=== PATIENT | female | born 1970 | race Caucasian/White ===

== ENCOUNTER 2019-01-16 07:01 | Day surgery (SDC) | payer OTHER ==
[~2019-01-16] VITALS: Ht 162.6 cm; Wt 60.9 kg
[2019-01-16] VITALS (15 sets, daily range): BP systolic 97–116; BP diastolic 67–79; PULSE 90–107; RESP 10–29; Ht 162.6 cm; Wt 60.9 kg
[~2019-01-16 07:01] MED LIST: DOCU-159 PO; HYDR-3498 PO; OMEP20CA16 PO; POLY17PO28 PO; PRENAT PO
[2019-01-16] MEDS ORDERED: ACETAMINOPHEN 500 MG TAB PO ONE (08:00)
[2019-01-16] MEDS ORDERED: MIDAZOLAM 1 MG/ML 2 ML INJ ONE (08:37)
[2019-01-16] MEDS ORDERED: FENTAnyl 50 MCG/ML VIAL ONE (08:37)
[2019-01-16] MEDS ORDERED: CEFAZOLIN 1 GM INJ ONE (08:37)
[2019-01-16] MEDS ORDERED: LIDOCAINE 2% (SDV) 5 ML INJ ONE (08:37)
[2019-01-16] MEDS ORDERED: PROPOFOL 40 ML ONE (08:37)
--- NOTE | 2019-01-16 08:59 | PREAC ---
Date/Time of Note Date/Time of Note DATE: 01/16/19 TIME: 08:57 Anesthesia Eval and Record Evaluation Time Pre-Procedure Interview DATE: 01/16/19 TIME: 08:57 Age 48 Sex female NPO: 8 hrs Preoperative diagnosis R lower quadrant abdominal wall mass Planned procedure excision of R lower quadrant abdominal wall mass Past Medical History Past Medical History: Includes (hx colon ca w/ colon resection mets to liver w/ L lateral hepatectomy; pt states she is cancer free from her organs) Surgery & Anesthesia Issues No known issue Meds Anticoagulation: No Beta Cheli within 24 hr: No Reason Beta Cheli not given: Pt. not on B-Cheli Discontinued Reported Medications Hydrocodone Bit-Acetaminophen* (Hydrocodone-APAP*) 5-325 Tablet, 1 TAB PO QID PRN for PAIN, TAB 06/30/16 Omeprazole* (Omeprazole*) 20 Mg Capsule.dr, 20 MG PO DAILY, #30 CAP 06/30/16 Polyethylene Glycol* (Polyethylene Glycol*) 17 Gm Powd.pack, 17 GM PO DAILY, #30 PACKET 06/30/16 Docusate Sodium* (Docusate Sodium*) 100 Mg Capsule, 100 MG PO BID, #60 CAP 06/30/16 Multivit/Min/Fol Ac/Iron/Pren* ( S*) 1 Tab Tab, 1 TAB PO DAILY, TAB 02/17/16 Meds reviewed: Yes Allergies Coded Allergies: No Known Drug Allergy (Unverified Allergy, Unknown, 01/16/19) Allergies Reviewed: Yes Labs/Studies Labs Reviewed: Reviewed by anesthesiologist test: Negative Pre-procedure Exam Last vitals Vital Signs Date Temp Pulse Resp B/P (MAP) Pulse Ox O2 O2 Flow FiO2 Time Delivery Rate 01/16/19 98.0 08:35 01/16/19 107 18 116/75 97 07:10 (89) Airway: Adequate mouth opening, Adequate thyromental dist Mallampati: Mallampati II Teeth: Normal Lung: Normal Heart: Normal ASA Physical Status ASA physical status: 2 Emergency: None Planned Anesthetic General/MAC: LMA Pre-operative Attestations Prior to commencing anesthesia and surgery, the patient was re-evaluated, there was verification of: *The patient's identity *The results of appropriate recent lab work and preoperative vital signs *The above evaluation not changing prior to induction *Anesthetic plan, risk benefits, alternative and complications discussed with patient/family; questions answered; patient/family understands, accepts and wishes to proceed. KENNY REYNOLDS Jan 16, 2019 08:59
[2019-01-16] MEDS ORDERED: OXYCODONE/ACETAMINOPHEN (5/325) TAB PO PRN ×2 (09:00)
[2019-01-16] MEDS ORDERED: HYDROmorphONE 1 MG/5 ML IV SYRINGE IV PRN (09:00)
[2019-01-16] MEDS ORDERED: ONDANSETRON 4 MG INJ IV PRN (09:00)
[2019-01-16] MEDS ORDERED: LABETALOL HCL 20MG INJ IV PRN (09:00)
[2019-01-16] MEDS ORDERED: morphine (1 MG/ML) 10ML SYRINGE IV PRN ×2 (09:00)
[2019-01-16] MEDS ORDERED: MEPERIDINE 25 MG INJ IV PRN (09:00)
[2019-01-16] MEDS ORDERED: ALBUTEROL 0.083% (NEB) 2.5 MG/3 ML AMP HHN PRN (09:00)
[2019-01-16] MEDS ORDERED: DIPHENHYDRAMINE 50 MG INJ IV PRN (09:00)
[2019-01-16] MEDS ORDERED: FENTAnyl 50 MCG/ML VIAL IV PRN ×2 (09:00)
[2019-01-16] MEDS ORDERED: ONDANSETRON 4 MG INJ ONE (09:15)
[2019-01-16] MEDS ORDERED: FAMOTIDINE 20 MG INJ ONE (09:15)
[2019-01-16] MEDS ORDERED: PHENYLephrine 10 MG INJ ONE (09:16)
[2019-01-16] MEDS ORDERED: BUPIVACAINE 0.5%/EPI (SDV) 30 ML INJ ONE (09:34)
--- NOTE | 2019-01-16 09:54 | PAC ---
Date/Time of Note Date/Time of Note DATE: 01/16/19 TIME: 09:52 Post-Anesthesia Notes Post-Anesthesia Note Last documented vital signs Vital Signs Date Temp Pulse Resp B/P (MAP) Pulse Ox O2 O2 Flow FiO2 Time Delivery Rate 01/16/19 98.0 98 99 18 114/72 100 8L face 08:35 094 mask 8 01/16/19 107 18 116/75 97 07:10 (89) Activity: WNL Respiratory function: WNL Cardiovascular function: WNL Mental status: Baseline Pain reasonably controlled: Yes Hydration appropriate: Yes Nausea/Vomiting absent: Yes KENNY REYNOLDS Jan 16, 2019 09:54
[2019-01-16] MEDS: HYDROmorphONE 1 MG/5 ML IV SYRINGE IV PRN ×2 (10:30→10:35)
--- NOTE | 2019-01-16 10:32 | OPR ---
DATE OF OPERATION: 01/16/2019 PREOPERATIVE DIAGNOSIS: Stage IV colon cancer and a symptomatic right abdominal wall tumor. POSTOPERATIVE DIAGNOSIS: Stage IV colon cancer and a symptomatic right abdominal wall tumor. OPERATION PERFORMED: Resection of right abdominal wall tumor with portion of right abdominal wall mu sculature. ANESTHESIA: General. ANESTHESIOLOGIST: Megan Evans, nurse medical services assistant. SURGEON: Sandeep Ruvalcaba MD COLOR ARTIST: None. INDICATIONS FOR PROCEDURE: The patient is a very unfortunate 48-year-old female who is being treated for stage IV colon cancer. She had previous liver resection and liver ablation by another surgeon. She presented with a mass on the right abdominal wall. Her medical oncologist requested resection o f the mass for 2 reasons; first because it was symptomatic and second because they wanted to send the tissue for genetic analysis to help direct treatment. The patient consented and was scheduled for [facility]. DESCRIPTION OF PROCEDURE: The patient was brought to the operating theater, placed under general end otracheal tube anesthesia. The palpable mass was identified on the right side of the abdomen approxi mately 6 to 7 cm below the right costal margin. A transverse incision was made over the mass. Subcu taneous tissue was dissected down to the fibers of the external oblique. The mass was below the fibe rs of the external oblique. Therefore, the muscle fibers were split in the direction of the fibers a nd retracted medially and laterally. This allowed visualization of the underlying tumor process whic h was involving the fibers of the internal oblique and portions of the transversalis musculature. It was deemed by Dr. Ruvalcaba that complete extirpation would not be in the patient's best interest as it would leave the patient with very large abdominal wall defect, therefore the tumor was circumferentia lly transected en bloc with a portion of the musculature, taking great care not to violate the perine um; only a small amount of residual tumor cells were not included in the resection. These tumor cell s were intimately associated with the peritoneum. The tumor was then elevated, transected, and sent for pathologic analysis. Wound was irrigated. The fascia of the area was then infiltrated with 0.5% Marcaine local anesthetic with epinephrine, and the abdominal wall fascia overlying the external obl ique was then reapproximated with multiple 2-0 Vicryl sutures. Wound was irrigated with Betadine, an d skin was then reapproximated with skin melisa. Patient tolerated procedure well. Estimated blood loss was 20 mL. There were no complications and the patient was transported in stable condition to the recovery room. Dictated By: SANDEEP SHIELDS/DEE Conf#: [id number] DID#: [id number]
--- NOTE | 2019-01-16 10:34 | SIPON ---
Date/Time of Note Date/Time of Note DATE: 01/16/19 TIME: 10:32 Operative Report Preoperative Diagnosis Right abdominal wall mass, stage IV colon cancer Postoperative Diagnosis Same Operation/Procedure Performed Resection of right abdominal wall mass with en bloc resection of portion of the abdominal wall musculature Surgeon see signature line assistant director None Anesthesia: general Estimated blood loss: 10 - 50 ml's Transfusion Required none Specimen Right abdominal wall mass with portion of abdominal wall musculature Grafts/Implants none Complications none KARTHIKEYAN GALINDO MD Jan 16, 2019 10:34
[2019-01-16] MEDS ORDERED: SOD CHLORIDE 0.9% 1,000 ML IV SCH (12:30)
[2019-01-16] MEDS ORDERED: CEFAZOLIN 2 GM/50 ML (PMX) 50 ML IVPB SCH (12:30)
== END 2019-01-16 12:14 | disposition home or self-care (01) ==
LOC: SDS 07:01
PROVIDERS: ATTEND Surgery Surgical Oncology
DX: C79.89 Secondary malignant neoplasm of other specified sites (principal); C18.9 Malignant neoplasm of colon, unspecified
CPT/HCPCS: 22901; 88307; 88313; J0690; J1170; J2175; J2250; J2370; J2405; J3010; Z7512; Z7610